=== PATIENT | female | born 1970 | race African-American/Black ===

== ENCOUNTER 2017-01-26 19:46 | Emergency (ER) | payer SELFPAY, OTHER ==
[2017-01-26 20:45] LABS: Bilirubin Negative (Negative); Blood, Urine Negative (Negative); Glucose, Urine (Dipstick) >=1000 mg/dL (Negative); Ketone, Urine Negative (Negative); Nitrite Negative (Negative); Protein, Urine (Dipstick) Negative (Neg-Trace); Urobilinogen 0.2 mg/dL (0.2-1.0)
== END 2017-01-26 20:58 | disposition home or self-care (01) ==
LOC: ERS 19:46
DX: B37.3 Candidiasis of vulva and vagina (principal)
CPT/HCPCS: 81003; 87480; 87491; 87510; 87591; 87660; 99283

== ENCOUNTER 2017-09-07 12:15 | Emergency (ER) | payer OTHER, SELFPAY | END 2017-09-07 13:12 | disposition home or self-care (01) | LOC: ERS 12:15 | DX: L73.9 Follicular disorder, unspecified (principal); B35.3 Tinea pedis; E11.9 Type 2 diabetes mellitus without complications | CPT/HCPCS: 99283 ==

== ENCOUNTER 2024-04-06 18:25 | Emergency (ER) | payer SELFPAY | END 2024-04-06 20:32 | disposition home or self-care (01) | LOC: ERS 18:25 | DX: L25.9 Unspecified contact dermatitis, unspecified cause (principal); I10 Essential (primary) hypertension; E11.9 Type 2 diabetes mellitus without complications | CPT/HCPCS: 99282 ==

== ENCOUNTER 2024-04-11 12:40 | Emergency (ER) | payer SELFPAY ==
[2024-04-11] MEDS ORDERED: Dexamethasone 10 MG/ML VIAL ONE (14:28)
[2024-04-11] MEDS ORDERED: Ipratropium/Albuterol 3 ML NEB ONE (14:29)
[2024-04-11 15:45] LABS: #Basophils 0.03 10x3/uL (0.0-0.2); %Basophils 0.6 % (0.0-1.0); %Eosinophils 0.6 % (0.0-10.0); %Lymphocytes 43.7 % (21.0-51.0); %Monocytes 14.8 % (0.0-10.0); %Neutrophils 39.9 % (42.0-75.0); Hematocrit 41.1 % (36.0-47.0); Hemoglobin 12.9 g/dL (12.0-16.0); Mean Corpuscular HGB CONC 31.4 g/dL (32.0-36.0); Mean Corpuscular Hemoglobin 25.7 pg (27.0-31.0); Mean Platelet Volume 11.4 fL (7.4-10.4); Platelet Count 232 10x3/uL (130-400); RBC Distribution Width 13.3 % (11.5-14.5); Red Blood Cell (RBC) Count 5.01 mill/uL (4.20-5.40)
[2024-04-11] MEDS ORDERED: Ketorolac Tromethamine 30 MG (1 mL) VIAL ONE (16:01)
[2024-04-11] MEDS ORDERED: Metoclopramide HCl 10 MG (2 mL) VIAL ONE (16:01)
[2024-04-11] MEDS ORDERED: diphenhydrAMINE 50 MG/ML VIAL ONE (16:01)
[2024-04-11 16:06] LABS: ALT (SGPT) 20 U/L (Less than 34); AST (SGOT) 21 U/L (11-34); Albumin 3.9 g/dL (3.1-4.5); Alkaline Phosphatase 60 U/L (40-110); Anion Gap 15 mmol/L (10-20); BUN (Urea Nitrogen) 25 mg/dL (9.8-20.1); Bilirubin, Total 0.2 mg/dL (0.3-1.2); Calc. Creatinine Clearance 0 mL/min (70-130); Calcium 9.4 mg/dL (7.8-10.44); Carbon Dioxide 25 mmol/L (22-29); Chloride 103 mmol/L (98-107); Estimated GFR 83; Glucose 155 mg/dL (70-105); Magnesium 1.7 mg/dL (1.6-2.6); Potassium 4.2 mmol/L (3.5-5.1); Protein, Total 7.9 g/dL (6.0-8.3); Sodium 139 mmol/L (136-145)
[2024-04-11 16:07] LABS: Troponin I Less than 0.010 ng/mL (< 0.028)
[2024-04-11 18:38] LABS: Bilirubin Negative (Negative); Blood, Urine Negative (Negative); CAUTI Indications for Culture Dysuria,urgency,freq; Clarity Turbid (Clear); Glucose, Urine (Dipstick) Normal (Negative); Ketone, Urine Negative (Negative); Leukocyte 25 Leu/uL (Negative); Nitrite Negative (Negative); Protein, Urine (Dipstick) 70 mg/dL (Neg-Trace); RBC/HPF 0-3 HPF (0-3); Specific Gravity, Urine 1.026 (1.002-1.036); Urobilinogen Normal mg/dL (Less than 2); pH, Urine 5.5 (5.0-9.0)
[2024-04-11 18:41] LABS: Bacteria/HPF 1+ HPF (None Seen)
[2024-04-11 18:42] LABS: Urine Culture Reflex No No
== END 2024-04-11 19:07 | disposition home or self-care (01) ==
LOC: ERS 12:40
DX: N39.0 Urinary tract infection, site not specified (principal); B34.9 Viral infection, unspecified; I10 Essential (primary) hypertension; E78.5 Hyperlipidemia, unspecified; E11.9 Type 2 diabetes mellitus without complications
CPT/HCPCS: 36415; 71046; 80053; 81001; 83735; 83880; 84484; 85025; 85379; 87086; 87428; 93005; 94640; 96365; 96375; J1100; J1200; J1885; J2765; J7620